=== PATIENT | male | born 1945 | race Caucasian/White ===

== ENCOUNTER 2017-02-24 09:38 | Day surgery (SDC) | payer BC, OTHER ==
[2017-02-19 10:45] VITALS: BMI 31.9
[2017-02-24] MEDS ORDERED: PROPOFOL 20 ML ONE (10:06)
[2017-02-24 11:52] VITALS: TEMP 98.2
[2017-02-24 12:02] VITALS: BP 125/73; PULSE 62
--- NOTE | 2017-02-26 11:19 | PATH ---
Surgical Pathology Report Patient Name: NICHOLE ALVAREZ [facility]. Rec. #: [id number] /Age/Gender: 1945 (Age: 71) / M Account: [id number] Location: [facility]-ENDOSCOPY Taken: 02/24/2017 Received: 02/24/2017 Reported: 02/26/2017 Physicians: Vu Ramos M.D. Specimen(s) Received A: DUODENUM B: DUODENAL BULB C: ANTRUM Clinical History Duodenal polyp Hiatal hernia, esophagitis, antral ulcer, inflammation in duodenum Final Diagnosis A. DUODENUM, BIOPSY: TUBULAR ADENOMA WITH ASSOCIATED ACUTE INFLAMMATION. NO HIGH-GRADE DYSPLASIA OR CARCINOMA IDENTIFIED. NO HISTOLOGIC EVIDENCE OF GLUTEN SENSITIVE ENTEROPATHY (CELIAC SPRUE) IDENTIFIED. B. DUODENUM, BULB, BIOPSY: DUODENAL MUCOSA WITH NO PATHOLOGIC CHANGES. NO HISTOLOGIC EVIDENCE OF GLUTEN SENSITIVE ENTEROPATHY (CELIAC SPRUE) IDENTIFIED. C. STOMACH, ANTRUM, BIOPSY: FOCAL MILD CHRONIC GASTRITIS. IMMUNOSTAIN FOR H. PYLORI IS NEGATIVE. Comment: Recommend correlation with clinical findings and followup as clinically indicated. See also [id number]. Electronically Signed Viraj Wright M.D. Gross Description A. Received in formalin, labeled "duodenum" are 2 garcia, irregular portions of soft tissue averaging 0.4 cm. in greatest dimension. The specimens are submitted in toto in one cassette. B. Received in formalin, labeled "duodenal bulb" is a garcia, irregular portion of soft tissue measuring 0.3 cm. in greatest dimension. The specimen is submitted in toto in one cassette. C. Received in formalin, labeled "antrum" is a garcia, irregular portion of soft tissue measuring 0.3 cm. in greatest dimension. The specimen is submitted in toto in one cassette. 02/25/2017 [facility]02/25/2017
== END 2017-02-24 12:11 | disposition home or self-care (01) ==
LOC: FASU-ENDO 09:38
PROVIDERS: ATTEND Internal Medicine Gastroenterology
PROC: 0DB68ZX Excision of Stomach, Via Natural or Artificial Opening Endoscopic, Diagnostic (ICD-10-PCS; 2017-02-24)
PROC: 0DB98ZX Excision of Duodenum, Via Natural or Artificial Opening Endoscopic, Diagnostic (ICD-10-PCS; principal; 2017-02-24 11:21)
PROC: 0DB78ZX Excision of Stomach, Pylorus, Via Natural or Artificial Opening Endoscopic, Diagnostic (ICD-10-PCS; 2017-02-24 11:21)
DX: K29.80 Duodenitis without bleeding (principal); K44.9 Diaphragmatic hernia without obstruction or gangrene; K25.9 Gastric ulcer, unspecified as acute or chronic, without hemorrhage or perforation; K29.50 Unspecified chronic gastritis without bleeding; K20.9 Esophagitis, unspecified; D13.2 Benign neoplasm of duodenum
CPT/HCPCS: 88305-TC; 88342-TC

== ENCOUNTER 2023-01-06 08:21 | Day surgery (SDC) | payer OTHER, BC ==
[2023-01-02 12:10] VITALS: BMI 31.9
[2023-01-06 09:01] VITALS: TEMP 97.5
[2023-01-06 10:31] VITALS: RESP 20
[2023-01-06 11:09] VITALS: BP 110/56; PULSE 58
== END 2023-01-06 11:00 | disposition home or self-care (01) ==
LOC: FASU-ENDO 08:21
PROVIDERS: ATTEND Internal Medicine Gastroenterology
PROC: 0DB98ZX Excision of Duodenum, Via Natural or Artificial Opening Endoscopic, Diagnostic (ICD-10-PCS; 2023-01-06)
PROC: 0DB68ZX Excision of Stomach, Via Natural or Artificial Opening Endoscopic, Diagnostic (ICD-10-PCS; 2023-01-06)
PROC: 0DBL8ZX Excision of Transverse Colon, Via Natural or Artificial Opening Endoscopic, Diagnostic (ICD-10-PCS; principal; 2023-01-06 09:52)
DX: Z12.11 Encounter for screening for malignant neoplasm of colon (principal); K57.30 Diverticulosis of large intestine without perforation or abscess without bleeding; K29.50 Unspecified chronic gastritis without bleeding; K44.9 Diaphragmatic hernia without obstruction or gangrene; K31.7 Polyp of stomach and duodenum
CPT/HCPCS: 88305-TC; 88342-TC